=== PATIENT | female | born 1965 | race Caucasian/White ===

== ENCOUNTER 2017-04-28 10:03 | Emergency (ER) | payer MEDICAID ==
[~2017-04-28] VITALS: Ht 165.1 cm; Wt 77.0 kg
[2017-04-28] MEDS ORDERED: SODIUM CHLORIDE FLUSH 10ML SYR IVF ONE (11:30)
[2017-04-28] MEDS ORDERED: SODIUM CHLORIDE 0.9% 1,000ML IVBOLUS ONE (11:30)
[2017-04-28 12:02] LABS: BLOOD UREA NITROGEN 19 mg/dL (7-18)
[2017-04-28 12:35] VITALS: BP 141/93
== END 2017-04-28 12:38 | disposition home or self-care (01) ==
LOC: ED 12:25
DX: R53.1 Weakness (principal); R42 Dizziness and giddiness; J44.9 Chronic obstructive pulmonary disease, unspecified; F17.200 Nicotine dependence, unspecified, uncomplicated
CPT/HCPCS: 36415; 80048; 82040; 85025; 93005; 96360; 99285; J7030

== ENCOUNTER 2017-06-14 08:35 | Emergency (ER) | payer MEDICAID ==
[~2017-06-14] VITALS: Ht 165.1 cm; Wt 76.3 kg
[2017-06-14] MEDS ORDERED: ALBUTEROL/IPRATROPIUM 2.5MG/0.5MG, 3 ML ONE ×2 (09:25→09:42)
[2017-06-14] MEDS ORDERED: ALBUTEROL/IPRATROPIUM 2.5MG/0.5MG, 3 ML NPPB ONE (09:30)
[2017-06-14] MEDS ORDERED: KETOROLAC 30 MG/1 ML ONE (10:17)
[2017-06-14] MEDS ORDERED: KETOROLAC 30 MG/1 ML IM ONE (10:30)
[2017-06-14 11:03] VITALS: BP 143/90
== END 2017-06-14 11:14 ==
LOC: ED 08:50
DX: J44.1 Chronic obstructive pulmonary disease with (acute) exacerbation (principal)
CPT/HCPCS: 71010; 93005; 94640; 96372; 99284; 99406; J1885; J7512; J7620